=== PATIENT | male | born 1935 | race Caucasian/White ===

== ENCOUNTER 2020-12-03 06:17 | Day surgery (SDC) | payer MEDICARE ==
[~2020-12-03] VITALS: Ht 167.6 cm; Wt 74.4 kg
[2020-12-03] MEDS ORDERED: CHLORHEXIDINE 15 ML UDC PO ONE (07:00)
[2020-12-03] MEDS ORDERED: LACTATED RINGERS 1,000 ML IV SCH (07:00)
[2020-12-03] MEDS ORDERED: OMEP-376 PO (07:07)
[2020-12-03] MEDS ORDERED: [UNRECOGNIZED DRUG - CODE] PO (07:07)
[2020-12-03] MEDS ORDERED: LEVO125C4 PO (07:07)
[2020-12-03 07:08] VITALS: BP 161/74
[2020-12-03] MEDS ORDERED: ONDANSETRON 2MG/ML, 2ML IVPush PRN (08:00)
[2020-12-03] MEDS ORDERED: PLEASE ENTER ALLERGIES MC SCH (08:00)
== END 2020-12-03 09:45 | disposition home or self-care (01) ==
LOC: OR 06:17
PROVIDERS: ATTEND Internal Medicine Gastroenterology
DX: A09 Infectious gastroenteritis and colitis, unspecified (principal); K44.9 Diaphragmatic hernia without obstruction or gangrene; K22.10 Ulcer of esophagus without bleeding; K57.32 Diverticulitis of large intestine without perforation or abscess without bleeding; K64.1 Second degree hemorrhoids; K64.4 Residual hemorrhoidal skin tags; Z20.822 Contact with and (suspected) exposure to COVID-19; Z79.899 Other long term (current) drug therapy
CPT/HCPCS: 43239; 45380; 87635; 88305; 93005; J7120